=== PATIENT | male | born 1955 | race Caucasian/White ===

== ENCOUNTER → 2017-06-28 | Day surgery (SDC) | payer BC ==
[~2017-06-28] MED LIST: ACETAMINOPHEN 1000 MG/100 ML VIAL IV ONE; ACETAMINOPHEN/HYDROcodone 325 MG/5 MG TAB ONE; BUPIVACAINE/EPINEPHRINE 0.5% 50 ML VIAL ONE; KETOROLAC TROMETHAMINE 30 MG/ML (IVP) VIAL IV PUSH ONE; LACTATED RINGER'S 1000 ML INJ 1,000 ML ONE; LIDOCAINE 1%/EPINEPHrine 1:200,000 PF SOLN 30 ML VIAL ONE; MIDAZOLAM HCL 2 MG/2 ML VIAL ONE; ONDANSETRON HCL 4 MG/2 ML VIAL IV PUSH ONE; PROPOFOL 200 MG/20 ML AMP IV ONE; TRAM50 PO; ceFAZolin INJ 1,000 MG VIAL ONE
--- NOTE | 2017-06-28 10:17 | TN ---
cc: SACHI ESCAMILLA M.D., JOSEPH D. M.D. DATE OF SURGERY: 06/28/2017 PREOPERATIVE DIAGNOSIS Previous perforated appendicitis in need of appendectomy. POSTOPERATIVE DIAGNOSIS Previous perforated appendicitis in need of appendectomy chronic appendicitis. PROCEDURE 1. Laparoscopic appendectomy. 2. Laparoscopic lysis of adhesions. ANESTHESIA General. SURGEON Dr. Mikhail Chance MD COIL WINDER HAND Ms Chandrakant RICHARDSON The WHITE KID BUFFER was present from beginning to the end of the case assisting in all portions of the procedure. It was necessary to have this individual in the room to assist in the above surgical procedure. The surgical procedure was assisted by the WHITE KID BUFFER. The WHITE KID BUFFER presence was necessary throughout the case for appropriate retraction, dissection, visualization, and resection of the important anatomical structures during the surgical procedure. The WHITE KID BUFFER was assisting throughout the entirety of the operation. The skill set of the WHITE KID BUFFER is medically and surgically necessary to safely complete the surgical procedure. During the surgical case the operating room vascular tech was working instrument table and passing instruments to the attending surgeon and WHITE KID BUFFER The WHITE KID BUFFER was directly assisting the operating surgeon and involved in the technical aspects of the surgical case INDICATION This is a pleasant 61-year-old gentleman who had a history of perforated appendicitis with abscess that was treated conservatively when he was in [facility]. He has recovered and plans were made for above. DETAILS OF PROCEDURE The patient was taken to the operating room and placed in the supine position. After anesthesia his abdomen is prepped with Betadine. We make an incision just above the umbilicus. A Veress needle is inserted. A saline load test is performed. The abdomen is insufflated to 15 mmHg. A 10 mm trocar is introduced and the camera is introduced. Two other working ports are placed, 5 mm above the pubic tubercle and 5 mm in between the two previously placed ports. The patient is placed in Trendelenburg position, slightly rotated to the left. We are able to visualize the previously perforated appendicitis. There is scar tissue. The scar tissue is taken down with the Harmonic scalpel. Lysis of adhesions are accomplished. We are then able to elevate the appendix up. It looks chronically inflamed with erythema. We dissect the mesentery down with the Harmonic scalpel. The appendiceal artery is sealed with the Harmonic scalpel. Two Endo ties are then placed around the base of the appendix. The appendix is then amputated, placed in an EndoCatch and passed off the field. Some other adhesions are taken down. The bowel that can be seen appears normal. We irrigate the pelvis. The liver is smooth, peritoneal surfaces are smooth. There is some omentum stuck to the liver which is elevated with the Harmonic scalpel to visualize the gallbladder which looks completely normal. No other gross abnormality is seen. We then remove the CO2 and the irrigating solution. The fascial umbilical incision is closed with 0 Vicryl and skin is closed with 4-0 Vicryl. Steri-Strips are applied. Sterile bandage is applied. The patient tolerated the procedure well and had no immediate post-op complications. Mikhail Chance MD JDB/BT /9:51 AM /10:06 AM MAYANK
== END | disposition home or self-care (01) ==
LOC: ESDC 07:43
PROVIDERS: ATTEND Surgery
DX: K35.3 Acute appendicitis with localized peritonitis (principal)
CPT/HCPCS: 00840; 44970; 88304; J0131; J0690; J1885; J2250; J2405; J3010; J7120